=== PATIENT | male | born 1980 | race American Indian/Alaskan Native ===

== ENCOUNTER 2018-12-24 14:03 | Emergency (ER) | payer OTHER ==
[2018-12-24 14:17] VITALS: BP 127/73
--- NOTE | 2018-12-24 14:19 | Emergency Department Report ---
Blank Doc - Documentation Documentation: 38 y o male presents with small laceration to right arm while at work sustained by a nail unsure of last tetanus ACC eval
[2018-12-24] MEDS ORDERED: BOOSTRIX IM ONE (14:33)
--- NOTE | 2018-12-24 14:38 | Emergency Department Report ---
ED Laceration HPI - HPI Chief Complaint: Wound/Laceration Stated Complaint: RT ARM CUT Time Seen by Provider: 12/24/18 14:17 Occurred When: Today Location: Upper Extremity (RUE) Severity: mild Tetanus Status: Not up to Date Laceration Symptoms: No Foreign Body Sensation, No Numbness, No Weakness, No Pain Other History: scratched arm on rene nail. needs tetanus ED Review of Systems ROS: Stated complaint: RT ARM CUT Other details as noted in HPI Comment: All other systems reviewed and negative ED Past Medical Hx - Past Medical History Previous Medical History?: No - Surgical History Past Surgical History?: No - Social History Smoking Status: Current Every Day Smoker Substance Use Type: Alcohol, Marijuana - Medications Home Medications: Home Medications Medication Instructions Recorded Confirmed Last Taken Type No Known Home Medications [No 12/11/14 12/11/14 Unknown History Reported Home Medications] Laceration Physical Exam - Exam General: Vital signs noted. No distress. Alert and acting appropriately. Laceration Location: Upper Extremity (R antecubital area with 3-4 cm scratch/abrasion, no actual lac) Laceration Exam: Yes Normal Distal CMS, No Foreign Body, No Exposed Tendon, Vessel, or Nerve, No Tendon Injury ED Course Vital Signs 12/24/18 14:16 Temperature 98.4 F Pulse Rate 73 Respiratory 18 Rate Blood Pressure 127/73 [Right] O2 Sat by Pulse 98 Oximetry ED Medical Decision Making - Medical Decision Making supportive care no repair needed tetanus updated - Differential Diagnosis lac, abrasion Critical care attestation.: If time is entered above; I have spent that time in minutes in the direct care of this critically ill patient, excluding procedure time. ED Disposition Clinical Impression: Skin abrasion Disposition: DC-01 TO HOME OR SELFCARE Is pt being admited?: No Condition: Good Instructions: Abrasion (ED) Referrals: JESS WESTON MD [Staff Physician] - 3-5 Days Time of Disposition: 14:38
== END 2018-12-24 14:54 | disposition home or self-care (01) ==
LOC: ED 14:03
DX: S40.811A Abrasion of right upper arm, initial encounter (principal); F17.200 Nicotine dependence, unspecified, uncomplicated; F12.10 Cannabis abuse, uncomplicated; X58.XXXA Exposure to other specified factors, initial encounter; Y93.89 Activity, other specified; Y92.89 Other specified places as the place of occurrence of the external cause; Y99.8 Other external cause status
CPT/HCPCS: 90471; 90715; 99282